=== PATIENT | male | born 1970 | race Caucasian/White ===

== ENCOUNTER 2018-09-02 14:26 | Emergency (ER) | payer OTHER ==
[2018-09-02] MEDS ORDERED: HYDROcodone-ACET 10/325MG TAB PO ONE (19:30)
[2018-09-02 19:36] VITALS: BP 133/75
== END 2018-09-02 20:20 | disposition home or self-care (01) ==
LOC: ER 14:26 → EDBD 14:26 → ER 20:20
DX: M54.6 Pain in thoracic spine (principal); R10.9 Unspecified abdominal pain; E11.9 Type 2 diabetes mellitus without complications; I10 Essential (primary) hypertension; Z88.6 Allergy status to analgesic agent; Z91.040 Latex allergy status
CPT/HCPCS: 72125; 72128; 74176